=== PATIENT | male | born 1975 | race African-American/Black ===

== ENCOUNTER 2019-03-05 17:55 | Emergency (ER) | payer MEDICAID, OTHER ==
[~2019-03-05] VITALS: Ht 198.1 cm; Wt 104.3 kg
[2019-03-05 19:00] VITALS: BP 131/99
== END 2019-03-05 19:32 | disposition home or self-care (01) ==
LOC: ER 17:55
DX: S81.811D Laceration without foreign body, right lower leg, subsequent encounter (principal); X58.XXXD Exposure to other specified factors, subsequent encounter